=== PATIENT | female | born 1955 | race Caucasian/White ===

== ENCOUNTER 2017-05-30 07:05 | Day surgery (SDC) | payer OTHER ==
--- NOTE | 2017-05-30 08:14 | CP.SDSHP ---
Same Day Surgery H & P - History Proposed Procedure: colonoscopy Pre-Op Diagnosis: rectal bleeding - Previous Medical/Surgical History Cardiac: Hypertension, Other (hyperlipidemia) Pulmonary: Asthma Endocrine/Metabolic: Diabetes Previous Surgical History: rotator cuff repair-R - Allergies Allergies: Allergies No Known Allergies Allergy (Verified 05/29/17 11:09) - Physical Exam Vital Signs: Vital Signs 05/30/17 07:30 Temperature 97.3 F L Pulse Rate 80 Respiratory 20 Rate Blood Pressure 118/73 O2 Sat by Pulse 98 Oximetry Mental Status: Alert & Oriented x3 Neuro: WNL Heart: WNL Lungs: WNL GI: WNL - Impression Impression: rectal bleeding Pt. Evaluated Today:Candidate for Anesthesia & Procedure: Yes - Date & Time Date: 05/30/17 Time: 08:14 Short Stay Discharge - Short Stay Discharge Admitting Diagnosis/Reason for Visit: GASTROINTESTINAL MASS, CHANGE IN BOWEL HABITS, DIANA Disposition: HOME/ ROUTINE
[2017-05-30] MEDS ORDERED: Propofol 10 mg/ml Inj (20 ML) ONE (08:38)
[2017-05-30 10:31] VITALS: PULSE 66; RESP 18; O2SAT 99
[2017-05-30 10:36] VITALS: BP 112/65; TEMP 97.2
== END 2017-05-30 10:17 | disposition home or self-care (01) ==
LOC: C.ENDO 07:05
PROVIDERS: ATTEND Internal Medicine Gastroenterology
DX: K92.2 Gastrointestinal hemorrhage, unspecified (principal); R19.4 Change in bowel habit; R19.7 Diarrhea, unspecified; K64.8 Other hemorrhoids
CPT/HCPCS: 45380; 82948; 87230; 88305; J2704

== ENCOUNTER 2018-02-06 07:36 | Day surgery (SDC) | payer OTHER ==
[2018-02-05 10:50] VITALS: BMI 21.4
[2018-02-06] MEDS ORDERED: Propofol 10 mg/ml Inj (20 ML) ONE (08:47)
--- NOTE | 2018-02-06 08:48 | CP.SDSHP ---
Same Day Surgery H & P - History Proposed Procedure: colonoscopy Pre-Op Diagnosis: persistent diarrhea. persistent rectal bleeding despite Rx. Abnormal CT Scan of colon. r/o IBD - Previous Medical/Surgical History Cardiac: Other (hyperlipidemia) Pulmonary: Asthma Endocrine/Metabolic: Diabetes Misc: Other (C diff colitis, internal hemorrhoids, ) - Allergies Allergies: Allergies No Known Allergies Allergy (Verified 02/05/18 10:50) - Physical Exam Vital Signs: Vital Signs 02/06/18 07:58 Temperature 98.4 F Pulse Rate 80 Respiratory 20 Rate Blood Pressure 97/69 L O2 Sat by Pulse 97 Oximetry Mental Status: Alert & Oriented x3 Neuro: WNL Heart: WNL Lungs: WNL GI: WNL - Impression Impression: diarrhea, rectal bleeding-persistent. abnormal CT Scan of colon. r/o IBD Pt. Evaluated Today:Candidate for Anesthesia & Procedure: Yes - Date & Time Date: 02/06/18 Time: 08:48 Short Stay Discharge - Short Stay Discharge Admitting Diagnosis/Reason for Visit: COLITIS / MELENA / DIARRHEA Disposition: HOME/ ROUTINE
[2018-02-06] MEDS ORDERED: Lactated Ringer's 1,000 ML IV ONE (08:50)
[2018-02-06 09:45] VITALS: TEMP 98; O2SAT 99
[2018-02-06 10:48] VITALS: BP 124/67; PULSE 88; RESP 12
== END 2018-02-06 10:45 | disposition home or self-care (01) ==
LOC: C.ENDO 07:36
PROVIDERS: ATTEND Internal Medicine Gastroenterology
DX: K51.50 Left sided colitis without complications (principal); K92.1 Melena; R19.7 Diarrhea, unspecified; R93.3 Abnormal findings on diagnostic imaging of other parts of digestive tract; K52.9 Noninfective gastroenteritis and colitis, unspecified
CPT/HCPCS: 45380; 82948; 83993; 87045; 87177; 87209; 87230; 88305; 89055; J2001; J2704; J7120